=== PATIENT | male | born 1995 ===

== ENCOUNTER 2018-03-31 12:16 | Emergency (ER) | payer MEDICAID ==
[2018-03-31 12:28] VITALS: BP 131/86; PULSE 88; RESP 18; TEMP 98; O2SAT 95
--- NOTE | 2018-03-31 13:22 | ED PDOC ---
Lower Extremity Pain/Injury Time Seen by Provider: 03/31/18 12:41 Chief Complaint (Nursing): Lower Extremity Problem/Injury Chief Complaint (Provider): Left knee pain History Per: Patient History/Exam Limitations: no limitations Onset/Duration Of Symptoms: Hrs (03:00 this morning) Current Symptoms Are (Timing): Still Present Additional Complaint(s): Gerard Clemons is a 23 year old male, with a previous left knee injury (ACL injury years ago, treated with P.T., no surgery), who presents to the emergency department complaining of left knee pain s/p fall around 03:00 this morning. Patient states he was initially ambulatory but woke up with increased swelling and pain on ambulation. He denies any other injuries, did not his head, denies any other medical complaints. PMD: None provided. - Knee Description Of Injury: Fell Past Medical History Reviewed: Historical Data, Nursing Documentation, Vital Signs Vital Signs: Last Vital Signs Temp 98 F 03/31/18 12:24 Pulse 88 03/31/18 12:24 Resp 18 03/31/18 12:24 BP 131/86 03/31/18 12:24 Pulse Ox 95 03/31/18 12:24 - Medical History PMH: No Chronic Diseases - Surgical History Surgical History: No Surg Hx - Family History Family History: States: Unknown Family Hx - Immunization History Hx Tetanus Toxoid Vaccination: No Hx Influenza Vaccination: No Hx Pneumococcal Vaccination: No - Home Medications Home Medications: Ambulatory Orders Medication Instructions Recorded Ondansetron [Zofran] 4 mg PO Q8H PRN #15 tab 05/22/14 Naproxen [Naprosyn] 1 tab PO BID PRN #25 tab 11/21/16 Ibuprofen [Motrin Tab] 600 mg PO Q8 7 Days tab 03/31/18 - Allergies Allergies/Adverse Reactions: Allergies Allergy/AdvReac Type Severity Reaction Status Date / Time No Known Allergies Allergy Verified 05/22/14 11:01 Review of Systems ROS Statement: Except As Marked, All Systems Reviewed And Found Negative Musculoskeletal: Positive for: Leg Pain (left knee pain) Physical Exam - Reviewed Nursing Documentation Reviewed: Yes Vital Signs Reviewed: Yes - Physical Exam Appears: Positive for: No Acute Distress Head Exam: Positive for: ATRAUMATIC, NORMOCEPHALIC Skin: Positive for: Normal Color, Warm, Dry Eye Exam: Positive for: Normal appearance Neck: Positive for: Painless ROM Respiratory: Negative for: Respiratory Distress Extremity: Positive for: Normal ROM (Full ROM of left knee), Tenderness (Mild swelling and tenderness to anterior aspect of left knee. ), Swelling Neurologic/Psych: Positive for: Alert, Oriented. Negative for: Motor/Sensory Deficits - ECG O2 Sat by Pulse Oximetry: 95 (RA) Pulse Ox Interpretation: Normal Medical Decision Making Medical Decision Making: Time: 12:41 Initial Impression: Left knee pain Initial plan: --Knee 4 or more views LT [RAD] --Reevaluation 13:55 -Knee x-ray read by provider. Negative, no fracture or dislocations. Will place patient on Mor wrap. 14:03 -Upon provider evaluation patient is medically stable, and requires no further treatment in the ED at this time. Patient will be discharged home with Rx for Motrin. Counseling was provided and all questions were answered regarding diagnosis and need for follow up with Dr. Kimble. There is agreement to discharge plan. Return if symptoms persist or worsen. Scribe Attestation: Documented by Yoandy Funez, acting as a scribe for Lalitha Hill PA-C Provider Scribe Attestation: All medical record entries made by the Scribe were at my direction and personally dictated by me. I have reviewed the chart and agree that the record accurately reflects my personal performance of the history, physical exam, medical decision making, and the department course for this patient. I have also personally directed, reviewed, and agree with the discharge instructions and disposition. Disposition - Clinical Impression Clinical Impression: Knee pain - Patient ED Disposition Is Patient to be Admitted: No Doctor Will See Patient In The: Office Counseled Patient/Family Regarding: Studies Performed - Disposition Referrals: Lester Morales MD [Staff Provider] - Disposition: Routine/Home Disposition Time: 14:03 Condition: IMPROVED Prescriptions: Ibuprofen [Motrin Tab] 600 mg PO Q8 7 Days tab Instructions: Knee Pain (DC) Forms: [facility] (Yi)
--- NOTE | 2018-03-31 16:56 | RAD ---
Date of service: 03/31/2018 PROCEDURE: Left Knee Radiographs. HISTORY: Pain. COMPARISON: None. FINDINGS: BONES: Bone alignment and mineralization are normal. There is no acute displaced fracture or bone destruction. JOINTS: There is mild tricompartmental degenerative osteoarthrosis with reduced joint spaces, marginal osteophytes and tibial spiking, worse in the media compartment. JOINT EFFUSION: There is a small suprapatellar joint effusion. OTHER FINDINGS: None. IMPRESSION: No acute fracture or dislocation.
== END 2018-03-31 14:58 | disposition home or self-care (01) ==
LOC: H.ER 12:16
DX: M25.562 Pain in left knee (principal)